=== PATIENT | female | born 1935 | race Caucasian/White ===

== ENCOUNTER 2017-09-12 17:20 | Inpatient (IN) ==
[2017-09-12] MEDS ORDERED: Lactulose Oral Soln 20 GM/30 ML UDC PO PRN (18:41)
[2017-09-12] MEDS ORDERED: [UNRECOGNIZED DRUG - REMARK] IVP SCH (18:45)
[2017-09-12] MEDS ORDERED: *HR* HYDROmorphone 2 MG TABLET PO SCH (18:45)
[2017-09-12] MEDS ORDERED: amLODIPine 5 MG TABLET PO SCH (21:00)
[2017-09-12] MEDS: *HR* OxyCODONE ER (12 HR) 10 MG TABLET PO SCH (21:55)
[2017-09-12] MEDS: Renal Vitamin 1 MG CAPSULE PO SCH (21:55)
[2017-09-12] MEDS: *HR* LORazepam 0.5 MG TABLET PO SCH (21:56)
[2017-09-12] MEDS: Aspirin Enteric Coated 81 MG Tablet PO SCH (21:56)
[2017-09-12] MEDS: Sennosides 8.6 MG TABLET PO SCH (21:56)
[2017-09-12] MEDS: Bumetanide 1 MG TABLET PO SCH (22:01)
[2017-09-12] MEDS: MECLIZINE HCL PO SCH (22:01)
[2017-09-13] MEDS ORDERED: (Pomalidomide [Pomalyst] 2 MG) PO SCH (09:00)
[2017-09-13] MEDS: MECLIZINE HCL PO SCH ×2 (09:00→20:29)
[2017-09-13] MEDS: Bumetanide 1 MG TABLET PO SCH ×2 (10:41→18:28)
[2017-09-13] MEDS: *HR* OxyCODONE ER (12 HR) 10 MG TABLET PO SCH ×2 (10:42→20:28)
[2017-09-13] MEDS: Folic Acid 1 MG TABLET PO SCH (10:42)
[2017-09-13] MEDS: *HR* LORazepam 0.5 MG TABLET PO SCH ×2 (10:45→20:29)
--- NOTE | 2017-09-13 15:18 | Internal Med History&Physical ---
Date of Encounter: 09/13/17 Time of Encounter: 14:45 Assessment and Plan (1) ESRD (end stage renal disease) on dialysis Current visit: No Status: Chronic Continue MWF hemodialysis. (2) Atrial fibrillation Current visit: No Status: Chronic Paroxysmal. She is not on anticoagulation but does take aspirin 81 mg daily. Qualifiers: Atrial fibrillation type: chronic Qualified Code(s): I48.2 - Chronic atrial fibrillation (3) Multiple myeloma Current visit: No Status: Chronic As per oncologist. Qualifiers: Multiple myeloma remission status: not in remission Qualified Code(s): C90.00 - Multiple myeloma not having achieved remission (4) Hypothyroidism Current visit: No Status: Chronic TSH was normal at 1.251 on 06/02/2017. Continue present dose Synthroid. Qualifiers: Hypothyroidism type: unspecified Qualified Code(s): E03.9 - Hypothyroidism , unspecified (5) Pancytopenia Current visit: No Status: Chronic Probably secondary to multiple myeloma. Will monitor blood count as necessary. (6) Hypertension Current visit: No Status: Chronic Blood pressure occasionally borderline low. We will reduce dose of amlodipine Qualifiers: Hypertension type: essential hypertension Qualified Code(s): I10 - Essential (primary) hypertension Internal Medicine - H&P: HPI Chief complaint: Pneumonia, weakness Admitted From: Hospital to Hospital Transfer Plans for Post Hospital Care: Home History of present illness: Ms. Melara is a 81 year old female who was hospitalized at [facility] September 03- after admission for pneumonia with hypoxemia. She was treated with IV antibiotics and had satisfactory improvement. Bilateral pleural effusions were documented and she had right thoracentesis with benign transudate found. She was stabilized and admitted to [facility] swing bed for ongoing rehabilitation therapy. Her respiratory history significant for being a lifelong nonsmoker. She denies previous pneumonia or pleural effusions. She reports she does wear home oxygen but does not know the qualifying diagnosis. She does not recall having PFTs. Past Med Surg Social Fam HX - Past Medical History Medical history: cancer, diabetes, hyperlipidemia, hypertension, renal disease, thyroid disease, other Psychiatric history: anxiety, depression - Past Surgical History Surgical History: other - Social History Smoking Status: Never smoker Smokeless Tobacco Status: No Alcohol use: none Drug use: none - Family History Mother Family Member Ethnicity: Non- Living Status: Father Family Member Ethnicity: Non- Living Status: Hx Family Cardiac Disorders: Yes (prostate) Internal Medicine - H&P: Meds Levothyroxine [Synthroid] 75 mcg PO DAILY 06/12/15 [History] Cyanocobalamin (Vitamin B-12) [Vitamin B12] 2,000 mcg PO DAILY #60 tablet [Rx] Lactulose 15 ml PO QID PRN #300 mls 11/07/16 [Rx] Bumetanide [Bumex] 1 mg PO BID 11/12/16 [History] Folic Acid 1 mg PO DAILY #90 tablet 12/31/16 [Rx] Amlodipine Besylate 10 mg PO HS 04/19/17 [History] Citalopram [CeleXA] 1 tab PO HS #30 tablet 05/20/17 [Rx] Metoprolol [Lopressor] 12.5 mg PO BID 05/20/17 [History] Renal Vitamin [Renal Caps Softgel] 1 mg PO HS 05/20/17 [History] Aspirin Enteric Coated [Aspirin EC] 81 mg PO HS 08/07/17 [History] Meclizine HCl [Verticalm] 1 tab PO BID 08/07/17 [History] Sennosides [Senna] 8.6 mg PO HS 08/07/17 [History] Midodrine [ProAmatine] 2.5 mg PO 3XW 09/01/17 [History] Guaifenesin [Mucinex] 600 mg PO BID #20 tab.er.12h 09/02/17 [Rx] Parenteral Amino Acid 20% No.1 [Prosol] 90 gm IJ MOWEFR 09/04/17 [History] Pomalidomide [Pomalyst] 2 mg PO DAILY 09/04/17 [History] HYDROmorphone [Dilaudid] 2 mg PO AD 10 Days #10 tablet 09/12/17 [Rx] LORazepam [Ativan] 0.5 mg PO BID 4 Days #8 tablet 09/12/17 [Rx] OxyCODONE ER (12 HR) [OxyCONTIN] 10 mg PO BID 4 Days #8 tab.er.12h 09/12/17 [Rx] 3 Allergy/AdvReac Type Severity Reaction Status Date / Time Sulfa (Sulfonamide Allergy Unknown Hives Verified 09/03/17 11:21 Antibiotics) All Systems PM: A 10-system review of systems was performed and is negative for pertinent findings except as documented above in the HPI. Review of systems: Gen.: She states her weight has been stable the past few months Cardiovascular: She has history of hypertension. She reports occasional chest pain on exertion. She denies [place] heart failure DVT or pulmonary embolus. A limited echocardiogram 04/20/2017 showed LVEF of 60-65%. There was LAE at 5.00 cm. The interventricular septum thickness measurement was reported elevated at 1.50 cm. Posterior wall thickness measurement was normal at 0.80 cm. Left ventricular end diastolic diameter was 3.20 cm. An echocardiogram 09/12/2016 showed estimated RVSP of 39 mmHg. There was mild mitral regurgitation present. The interventricular septum thickness measurement was normal at 1.00 cm. She has history of atrial fibrillation that is apparently paroxysmal. Respiratory: As per history of present illness GI: She denies disorders of her liver gallbladder or exocrine pancreas : She has chronic kidney disease stage V and has been on MWF hemodialysis since September 2016. She denies other kidney or bladder disorders. Neurologic: She denies large distribution strokes or seizures. Endocrine: She has hypothyroidism. She has history of DM 2 but states she adjusted her diet and no longer takes medication. Hemoglobin A1c was satisfactory at 5.7% on 09/11/2016. Hematology/oncology: She was diagnosed with multiple myeloma approximate October 2016. A bone survey 02/18/2017 showed numerous lytic lesions throughout the axial and appendicular skeleton consistent with multiple myeloma. She has pancytopenia presumably secondary to myeloma. She has had skin cancers but denies internal malignancies. Psychiatric: She has anxiety and depression but denies other mental health issues [place] skeletal: She denies arthritis gout or other bone joint or muscle disorders. She has had bony spread of the multiple myeloma as per above. She has had T12 and L3 pathologic fractures. - Constitutional Vitals: Temp Pulse Resp BP Pulse Ox 98.5 F 65 18 111/61 92 09/13/17 07:22 09/13/17 10:28 09/13/17 07:22 09/13/17 07:22 09/13/17 10:28 Exam: Gen.: She is a well-developed pale female resting comfortably in bed who appears in no acute distress. She denies pain or dyspnea at rest. HEENT: Head is atraumatic and normocephalic. Eyes: EOMI. There is no scleral icterus. Mouth: Mucosa is moist. Neck: Supple and nontender. There is no thyromegaly or adenopathy noted. Heart: Regular without murmurs gallops or ectopics Lungs: She has diminished breath sounds and dullness to percussion in the lung bases bilaterally. No wheezes or crackles are heard. Abdomen: Soft and nontender. No masses or guarding are noted. Extremities: There is no cyanosis or clubbing noted. There is trace edema present on the dorsum of the feet and lower anterior shins. She has mild DJD changes of her hands. Neurologic: Mental status: She is talkative and a good historian. Cranial nerves: Smile is symmetric. Forehead wrinkles bilaterally. Tongue protrudes midline. EOMI. Motor: There is no pronator drift. Cerebellar: Finger to nose is intact bilaterally. Skin: Warm and dry
[2017-09-13] MEDS ORDERED: *HR* HYDROmorphone 2 MG TABLET PO PRN (18:34)
[2017-09-13] MEDS: Sennosides 8.6 MG TABLET PO SCH (20:28)
[2017-09-13] MEDS: Renal Vitamin 1 MG CAPSULE PO SCH (20:28)
[2017-09-13] MEDS: amLODIPine 5 MG TABLET PO SCH (20:29)
[2017-09-13] MEDS: Aspirin Enteric Coated 81 MG Tablet PO SCH (20:29)
[2017-09-14] MEDS: Bumetanide 1 MG TABLET PO SCH ×2 (08:22→17:16)
[2017-09-14] MEDS: *HR* OxyCODONE ER (12 HR) 10 MG TABLET PO SCH ×2 (08:36→20:17)
[2017-09-14] MEDS: Folic Acid 1 MG TABLET PO SCH (08:38)
[2017-09-14] MEDS: *HR* LORazepam 0.5 MG TABLET PO SCH ×2 (08:38→20:17)
[2017-09-14] MEDS: MECLIZINE HCL PO SCH ×2 (09:00→20:17)
--- NOTE | 2017-09-14 10:43 | Internal Med Progress Note ---
Date of Encounter: 09/14/17 Time of Encounter: 10:35 - Assessment and plan (1) ESRD (end stage renal disease) on dialysis Current Visit: No Status: Chronic Assessment and plan: September 14. Continue MWF hemodialysis. (2) Atrial fibrillation Current Visit: No Status: Chronic Assessment and plan: September 14. Paroxysmal. Continue aspirin 81 mg daily. Qualifiers: Atrial fibrillation type: chronic Qualified Code(s): I48.2 - Chronic atrial fibrillation (3) Multiple myeloma Current Visit: No Status: Chronic Assessment and plan: September 14. As per oncologist. Qualifiers: Multiple myeloma remission status: not in remission Qualified Code(s): C90.00 - Multiple myeloma not having achieved remission (4) Hypothyroidism Current Visit: No Status: Chronic Assessment and plan: September 14. TSH was normal at 1.251 on 06/02/2017. Continue Synthroid. Qualifiers: Hypothyroidism type: unspecified Qualified Code(s): E03.9 - Hypothyroidism , unspecified (5) Pancytopenia Current Visit: No Status: Chronic Assessment and plan: September 14. Probably secondary to multiple myeloma. Will monitor periodically. (6) Hypertension Current Visit: No Status: Chronic Assessment and plan: September 14. Blood pressure stable. Continue Lopressor and lower dose amlodipine. Qualifiers: Hypertension type: essential hypertension Qualified Code(s): I10 - Essential (primary) hypertension - Subjective Interval history: September 14. She has no new complaints. - Constitutional Vitals: Temp Pulse Resp BP Pulse Ox 98.0 F 57 18 128/58 93 09/14/17 06:57 09/14/17 06:57 09/14/17 06:57 09/14/17 06:57 09/14/17 06:57 Exam: She is resting comfortably in bed and appears in no acute distress. Her affect is bright and cheerful. I reviewed her medications and lab results. Consult Discharge Plan - Plan Referrals: Viet Ny DO [Primary Care Provider] - 1 week
[2017-09-14] MEDS: Renal Vitamin 1 MG CAPSULE PO SCH (20:16)
[2017-09-14] MEDS: amLODIPine 5 MG TABLET PO SCH (20:16)
[2017-09-14] MEDS: Aspirin Enteric Coated 81 MG Tablet PO SCH (20:16)
[2017-09-14] MEDS: Sennosides 8.6 MG TABLET PO SCH (20:17)
[2017-09-15] MEDS: *HR* LORazepam 0.5 MG TABLET PO SCH (08:32)
[2017-09-15] MEDS: MECLIZINE HCL PO SCH ×2 (08:32→22:00)
[2017-09-15] MEDS: *HR* OxyCODONE ER (12 HR) 10 MG TABLET PO SCH (08:32)
[2017-09-15] MEDS ORDERED: *HR* LORazepam 0.5 MG TABLET PO PRN (09:39)
[2017-09-15] MEDS: Folic Acid 1 MG TABLET PO SCH (15:57)
[2017-09-15] MEDS: Bumetanide 1 MG TABLET PO SCH (16:03)
[2017-09-15] MEDS ORDERED: *HR* HYDROmorphone 2 MG TABLET PO PRN (21:54)
[2017-09-15] MEDS: Renal Vitamin 1 MG CAPSULE PO SCH (21:59)
[2017-09-15] MEDS: Sennosides 8.6 MG TABLET PO SCH (21:59)
[2017-09-15] MEDS: Aspirin Enteric Coated 81 MG Tablet PO SCH (21:59)
[2017-09-15] MEDS: *HR* OxyCODONE/APAP 5/325 TABLET PO PRN (23:18)
[2017-09-16] MEDS: Folic Acid 1 MG TABLET PO SCH (07:55)
[2017-09-16] MEDS: MECLIZINE HCL PO SCH ×2 (12:42→21:21)
--- NOTE | 2017-09-16 15:05 | Internal Med Progress Note ---
Date of Encounter: 09/16/17 Time of Encounter: 14:55 - Assessment and plan (1) ESRD (end stage renal disease) on dialysis Current Visit: No Status: Chronic Assessment and plan: September 14. Continue MWF hemodialysis. (2) Atrial fibrillation Current Visit: No Status: Chronic Assessment and plan: September 14. Paroxysmal. Continue aspirin 81 mg daily. Qualifiers: Atrial fibrillation type: chronic Qualified Code(s): I48.2 - Chronic atrial fibrillation (3) Multiple myeloma Current Visit: No Status: Chronic Assessment and plan: September 14. As per oncologist. Qualifiers: Multiple myeloma remission status: not in remission Qualified Code(s): C90.00 - Multiple myeloma not having achieved remission (4) Hypothyroidism Current Visit: No Status: Chronic Assessment and plan: September 14. TSH was normal at 1.251 on 06/02/2017. Continue Synthroid. Qualifiers: Hypothyroidism type: unspecified Qualified Code(s): E03.9 - Hypothyroidism , unspecified (5) Pancytopenia Current Visit: No Status: Chronic Assessment and plan: September 14. Probably secondary to multiple myeloma. Will monitor periodically. (6) Hypertension Current Visit: No Status: Chronic Assessment and plan: September 14. Blood pressure stable. Continue Lopressor and lower dose amlodipine. September 16. Amlodipine was discontinued to lessen edema and avoid hypotension. Will give Toprol-XL 12.5 mg daily. Qualifiers: Hypertension type: essential hypertension Qualified Code(s): I10 - Essential (primary) hypertension - Subjective Interval history: September 14. She has no new complaints. September 16. She has no new complaints and feels well. - Constitutional Vitals: Temp Pulse Resp BP Pulse Ox 98.1 F 64 19 154/72 92 09/16/17 06:18 09/16/17 06:18 09/16/17 06:18 09/16/17 06:18 09/16/17 06:18 Exam: She is sitting comfortably in a chair at bedside at rest. Her affect is bright and cheerful. I reviewed her medications and past lab results. Consult Discharge Plan - Plan Referrals: Viet Ny DO [Primary Care Provider] - 1 week
[2017-09-16] MEDS: *HR* OxyCODONE/APAP 5/325 TABLET PO PRN ×2 (17:00→21:41)
[2017-09-16] MEDS: Renal Vitamin 1 MG CAPSULE PO SCH (21:31)
[2017-09-16] MEDS: Aspirin Enteric Coated 81 MG Tablet PO SCH (21:32)
[2017-09-16] MEDS: Bumetanide 1 MG TABLET PO SCH (21:32)
[2017-09-16] MEDS: Sennosides 8.6 MG TABLET PO SCH (21:32)
[2017-09-17] MEDS: Bumetanide 1 MG TABLET PO SCH (07:13)
[2017-09-17] MEDS: MECLIZINE HCL PO SCH ×2 (09:45→20:35)
[2017-09-17] MEDS: Folic Acid 1 MG TABLET PO SCH (09:45)
[2017-09-17] MEDS: Metoprolol XL (24 HR) Succ 25 MG TAB.ER.24H PO SCH (09:51)
[2017-09-17] MEDS: Sennosides 8.6 MG TABLET PO SCH (20:35)
[2017-09-17] MEDS: Renal Vitamin 1 MG CAPSULE PO SCH (20:35)
[2017-09-17] MEDS: Aspirin Enteric Coated 81 MG Tablet PO SCH (20:36)
[2017-09-17] MEDS: *HR* OxyCODONE/APAP 5/325 TABLET PO PRN (20:41)
[2017-09-18] MEDS: Metoprolol XL (24 HR) Succ 25 MG TAB.ER.24H PO SCH (11:01)
[2017-09-18] MEDS: Folic Acid 1 MG TABLET PO SCH (11:01)
[2017-09-18] MEDS: MECLIZINE HCL PO SCH ×2 (11:01→20:16)
[2017-09-18] MEDS: *HR* OxyCODONE/APAP 5/325 TABLET PO PRN (13:20)
[2017-09-18] MEDS: Bumetanide 1 MG TABLET PO SCH (18:01)
[2017-09-18] MEDS: Renal Vitamin 1 MG CAPSULE PO SCH (20:15)
[2017-09-18] MEDS: Sennosides 8.6 MG TABLET PO SCH (20:16)
[2017-09-18] MEDS: Aspirin Enteric Coated 81 MG Tablet PO SCH (20:16)
[2017-09-19] MEDS: Metoprolol XL (24 HR) Succ 25 MG TAB.ER.24H PO SCH (08:20)
[2017-09-19] MEDS: MECLIZINE HCL PO SCH (08:20)
[2017-09-19] MEDS: Folic Acid 1 MG TABLET PO SCH (08:21)
[2017-09-19 10:41] VITALS: BP 110/76
--- NOTE | 2017-09-19 15:43 | Discharge Summary ---
Date of Encounter: 09/19/17 Time of Encounter: 15:30 - Discharge Diagnosis (1) ESRD (end stage renal disease) on dialysis Priority: Primary Status: Chronic (2) Atrial fibrillation Priority: Secondary Status: Chronic Qualifiers: Atrial fibrillation type: paroxysmal Qualified Code(s): I48.0 - Paroxysmal atrial fibrillation (3) Multiple myeloma Priority: Secondary Status: Chronic Qualifiers: Multiple myeloma remission status: not in remission Qualified Code(s): C90.00 - Multiple myeloma not having achieved remission (4) Hypothyroidism Priority: Secondary Status: Chronic Qualifiers: Hypothyroidism type: unspecified Qualified Code(s): E03.9 - Hypothyroidism , unspecified (5) Pancytopenia Priority: Secondary Status: Chronic (6) Hypertension Priority: Secondary Status: Chronic Qualifiers: Hypertension type: essential hypertension Qualified Code(s): I10 - Essential (primary) hypertension Hospital course: Ms. Melara is a 82 year old female who was hospitalized at [facility] September 03- after admission for pneumonia with hypoxemia. She was treated with IV antibiotics and had satisfactory improvement. Bilateral pleural effusions were documented and she had right thoracentesis with benign transudate found. She was stabilized and admitted to [facility] swing bed for ongoing rehabilitation therapy. Initial orders were written by the discharging physicians at [facility]. I saw her on September 13 and performed the swing bed history and physical. She continued MWF hemodialysis. Amlodipine was discontinued because of edema. There was lessening of edema after discontinuation. Her blood pressure remained satisfactory. Metoprolol dose can be adjusted by her PCP and/or molding supervisor as needed. She had physical therapy and occupational therapy evaluation with ongoing intervention. She made satisfactory progress. There were no new problems and on September 19 she was stable for discharge home. She will follow with her PCP Dr. Viet Ny within 1 week. - Time Spent with Patient Total time spent providing and/or coordinating discharge services: - Discharge Medications Home Medications: Levothyroxine [Synthroid] 75 mcg PO DAILY 06/12/15 [History] Lactulose 15 ml PO QID PRN #300 mls 11/07/16 [Rx] Bumetanide [Bumex] 1 mg PO BID 11/12/16 [History] Folic Acid 1 mg PO DAILY #90 tablet 12/31/16 [Rx] Citalopram [CeleXA] 1 tab PO HS #30 tablet 05/20/17 [Rx] Metoprolol [Lopressor] 12.5 mg PO BID 05/20/17 [History] Renal Vitamin [Renal Caps Softgel] 1 mg PO HS 05/20/17 [History] Aspirin Enteric Coated [Aspirin EC] 81 mg PO HS 08/07/17 [History] Meclizine HCl [Verticalm] 1 tab PO BID 08/07/17 [History] Sennosides [Senna] 8.6 mg PO HS 08/07/17 [History] Midodrine [ProAmatine] 2.5 mg PO 3XW 09/01/17 [History] Parenteral Amino Acid 20% No.1 [Prosol] 90 gm IJ MOWEFR 09/04/17 [History] Pomalidomide [Pomalyst] 2 mg PO DAILY 09/04/17 [History] HYDROmorphone [Dilaudid] 2 mg PO AD 10 Days #10 tablet 09/12/17 [Rx] LORazepam [Ativan] 0.5 mg PO BID 4 Days #8 tablet 09/12/17 [Rx] Allergies/Adverse Reactions: 3 Allergy/AdvReac Type Severity Reaction Status Date / Time Sulfa (Sulfonamide Allergy Unknown Hives Verified 09/03/17 11:21 Antibiotics) Date of admission: 09/12/17 17:25 Primary care physician: Viet Ny DO Consults: 09/12/17 18:14 Consult to Occupational Therapy [CONS] Routine Comment: Eval, Develop, and Implement P.O.C. Reason for Consult: weakness Does patient have active BEDREST order?: No Is patient medically & hemodynamically stable?: Yes Patient assessed for mobility or mobilized this visit?: Yes Consult to Physical Therapy [CONS] Routine Comment: Eval, Develop, and Implement P.O.C. Reason for Consult: weakness Does patient have active BEDREST order?: No Is patient medically & hemodynamically stable?: Yes Patient assessed for mobility or mobilized this visit?: Yes Consult to Insurance Producer [CONS] Routine Reason for SW Consult: D/C planning - dialysis @ [facility] 09/13/17 18:44 Consult to Nutrition [CONS] Routine Comment: Consulting Provider: NUTRITION Reason for Dietary Consult: Other Other:: pt has multiple myeloma and is a dialysis pt - Constitutional Vitals: Temp Pulse Resp BP Pulse Ox 98.2 F 97 19 110/76 95 09/19/17 10:30 09/19/17 10:30 09/19/17 10:30 09/19/17 10:30 09/19/17 10:30 - Patient Status Disposition: Home Health Service Overall status at discharge: patient is progressing back to baseline - Discharge Instructions Follow Up With: Viet Ny DO [Primary Care Provider] - 1 week - Diet and Activity Activity: as per physical therapy Diet: advance to your usual diet
--- NOTE | 2017-09-19 15:48 | Physician Discharge Referral ---
Home Health/Hosp Referral Info Transfer to: Home Health Attending Provider: Jaycob Provider in Charge Post Discharge: PCP (Viet Ny D.O.) - Diagnosis (1) ESRD (end stage renal disease) on dialysis Priority: Primary Status: Chronic (2) Atrial fibrillation Priority: Secondary Status: Chronic (3) Multiple myeloma Priority: Secondary Status: Chronic (4) Hypothyroidism Priority: Secondary Status: Chronic (5) Pancytopenia Priority: Secondary Status: Chronic (6) Hypertension Priority: Secondary Status: Chronic - Respiratory Orders Smoking Cessation: Smoking cessation has been advised. For more information, call the [place] Tobacco Quit Line at 7-873-LZJR-NOW. - Diet/Nutrition Diet/Nutrition Orders: Regular - Activity Activity Orders: Ambulate - Services Needed Following services are medically necessary services: Nursing, Home Health Aide, Physical Therapy, Occupational Therapy - Transfer Medications Home Medications: Levothyroxine [Synthroid] 75 mcg PO DAILY 06/12/15 [History] Lactulose 15 ml PO QID PRN #300 mls 11/07/16 [Rx] Bumetanide [Bumex] 1 mg PO BID 11/12/16 [History] Folic Acid 1 mg PO DAILY #90 tablet 12/31/16 [Rx] Citalopram [CeleXA] 1 tab PO HS #30 tablet 05/20/17 [Rx] Metoprolol [Lopressor] 12.5 mg PO BID 05/20/17 [History] Renal Vitamin [Renal Caps Softgel] 1 mg PO HS 05/20/17 [History] Aspirin Enteric Coated [Aspirin EC] 81 mg PO HS 08/07/17 [History] Meclizine HCl [Verticalm] 1 tab PO BID 08/07/17 [History] Sennosides [Senna] 8.6 mg PO HS 08/07/17 [History] Midodrine [ProAmatine] 2.5 mg PO 3XW 09/01/17 [History] Parenteral Amino Acid 20% No.1 [Prosol] 90 gm IJ MOWEFR 09/04/17 [History] Pomalidomide [Pomalyst] 2 mg PO DAILY 09/04/17 [History] HYDROmorphone [Dilaudid] 2 mg PO AD 10 Days #10 tablet 09/12/17 [Rx] LORazepam [Ativan] 0.5 mg PO BID 4 Days #8 tablet 09/12/17 [Rx] Allergies/Adverse Reactions: 3 Allergy/AdvReac Type Severity Reaction Status Date / Time Sulfa (Sulfonamide Allergy Unknown Hives Verified 09/03/17 11:21 Antibiotics) Certification: Further, I certify that my clinical findings support that this patient is homebound (i.e. absences from home require considerable and taxing effort and are for medical reasons or jainism services or infrequently or short duration when for other reasons) because: Homebound Reason: Leaving home requires considerable and taxing effort due to condition (End-stage renal disease, atrial fibrillation, DJD) Attestation: My signature below is to certify that this patient is under my care and that I, or nurse practitioner, or a physician's clothing sales assistant working with me, has a face-to -face encounter with this patient.
[2017-09-20] MEDS ORDERED: Bumetanide 1 MG TABLET PO SCH (08:00)
== END 2017-09-19 16:20 | disposition home health service (06) | DRG 945 ==
LOC: INPPIK 17:25
PROVIDERS: ADMIT Internal Medicine; ATTEND Internal Medicine

== ENCOUNTER 2018-01-17 14:46 | Inpatient (IN) ==
[2018-01-17] MEDS ORDERED: Acetaminophen 325 MG TABLET PO PRN (22:53)
[2018-01-17] MEDS ORDERED: *HR* LORazepam 0.5 MG TABLET PO PRN (23:00)
[2018-01-17] MEDS ORDERED: Ondansetron ODT 4 MG TAB.RAPDIS SL PRN (23:02)
[2018-01-17] MEDS ORDERED: Sennosides 8.6 MG TABLET PO PRN (23:05)
[2018-01-18] MEDS: amLODIPine 5 MG TABLET PO SCH (07:34)
[2018-01-18] MEDS: Folic Acid 1 MG TABLET PO SCH (07:34)
[2018-01-18] MEDS: Cyanocobalamin (B-12) 1,000 MCG TABLET PO SCH (07:34)
[2018-01-18] MEDS: levETIRAcetam 250 MG TABLET PO SCH (07:35)
[2018-01-18] MEDS ORDERED: TRIPHROCAPS PO SCH (09:00)
[2018-01-18] MEDS ORDERED: [UNRECOGNIZED DRUG - REMARK] PO SCH (09:00)
[2018-01-18 09:08] LABS: Basophils % 1.7 %; Hematocrit 31.6 % (35.3-44.9); Hemoglobin 10.5 g/dL (11.5-15.4); Immature Granulocytes % 0.4 % (0-4); Lymphocytes # 0.7 K/mcL (0.6-4.6); Lymphocytes % 27.2 %; Mean Corpuscular HGB Conc 33.2 g/dL (31.6-35.5); Mean Corpuscular Hemoglobin 32.1 pg (28.0-33.3); Mean Corpuscular Volume 96.6 fL (83.0-100.0); Mean Platelet Volume 9.4 fL (9.4-12.4); Monocytes # 0.4 K/mcL (0.0-1.3); Monocytes % 15.1 %; Neutrophils # 1.3 K/mcL (1.6-8.9); Red Blood Count 3.27 M/mcL (3.82-4.97); Segmented Neutrophils % 55.6 %
[2018-01-18 09:23] LABS: Platelet Count 79 K/mcL (140-400)
[2018-01-18 09:52] LABS: Potassium 4.2 mEq/L (3.5-5.1)
--- NOTE | 2018-01-18 12:42 | Internal Med History&Physical ---
Date of Encounter: 01/18/18 Time of Encounter: 12:10 Assessment and Plan (1) Subdural bleeding Current visit: No Status: Acute Nonoperative treatment. Remain off NSAIDs and anticoagulants etc. (2) Weakness Current visit: Yes Status: Acute PT and OT evaluations with ongoing intervention will be done. (3) ESRD (end stage renal disease) on dialysis Current visit: No Status: Chronic Continue MWF hemodialysis. (4) Multiple myeloma Current visit: No Status: Chronic As per oncologist. Qualifiers: Multiple myeloma remission status: unspecified Qualified Code(s): C90.00 - Multiple myeloma not having achieved remission (5) Hypothyroidism Current visit: No Status: Chronic TSH was normal at 1.251 on 06/02/2017. Continue present dose Synthroid. Qualifiers: Hypothyroidism type: unspecified Qualified Code(s): E03.9 - Hypothyroidism , unspecified (6) Hypertension Current visit: No Status: Chronic Continue amlodipine and lisinopril. Qualifiers: Hypertension type: essential hypertension Qualified Code(s): I10 - Essential (primary) hypertension Internal Medicine - H&P: HPI Chief complaint: Subdural hematoma, weakness Admitted From: Hospital to Hospital Transfer Plans for Post Hospital Care: Home History of present illness: Ms. Melara is a 82 year old female who was transferred to [facility] swing bed after hospitalization at [facility] January 12-January 17. She presented with left facial droop, slurred speech, and confusion witnessed by her home health care nurse. Head CT showed acute on chronic left subdural hematoma. Neurosurgery recommended nonoperative treatment. She was placed on Keppra for nonspecific EEG abnormality. No evidence of acute CVA was found. She was discharged to swing bed to have PT and OT prior to returning to independent living at home. She states she had a fall November 2017 that resulted in left subdural hematoma. She has had no further falls or head trauma. She has not had large distribution strokes or other neurologic diagnoses. Past Med Surg Social Fam HX - Past Medical History Medical history: atrial fibrillation, cancer, diabetes, dialysis, hyperlipidemia , hypertension, renal disease, thyroid disease, other Additional medical history: Subdural hematoma Psychiatric history: anxiety, depression - Past Surgical History Surgical History: other Additional surgical history: heart cath. Permacath R chest - Social History Smoking Status: Never smoker Smokeless Tobacco Status: No Alcohol use: none Drug use: none - Family History Mother Family Member Ethnicity: Non- Living Status: Father Family Member Ethnicity: Non- Living Status: Hx Family Cardiac Disorders: Yes (prostate) Internal Medicine - H&P: Meds Levothyroxine [Synthroid] 75 mcg PO DAILY 06/12/15 [History] Cyanocobalamin (Vitamin B-12) [Vitamin B-12] 2,000 mcg PO DAILY 09/30/17 [ History] Lisinopril [Zestril] 10 mg PO DAILY 11/18/17 [History] Sennosides [Senna] 8.6 mg PO HS #30 tablet 11/18/17 [Rx] Ondansetron ODT [Zofran ODT] 4 mg SL Q6HR #20 tab.rapdis 12/02/17 [Rx] Amlodipine Besylate 10 mg PO DAILY 12/30/17 [History] Dexamethasone [Decadron] 4 mg PO AD #20 tab 12/30/17 [Rx] Pomalidomide [Pomalyst] 2 mg PO DAILY #21 capsule 12/30/17 [Rx] Folic Acid 1 mg PO DAILY #90 tablet 01/12/18 [Rx] Acetaminophen 650 mg PO Q4H PRN 01/17/18 [History] Carvedilol 3.125 mg PO BID 01/17/18 [History] Citalopram [CeleXA] 20 mg PO HS 01/17/18 [History] Dexamethasone 20 mg PO Q1W 01/17/18 [History] Folic Acid 1 mg PO DAILY 01/17/18 [History] Keppra 250 mg PO QMWF 01/17/18 [History] Keppra 750 mg PO DAILY 01/17/18 [History] Lorazepam 0.5 mg PO Q12H 01/17/18 [History] Potassium Chloride [Klor-Con 10] 2 mg PO DAILY 01/17/18 [History] 3 Allergy/AdvReac Type Severity Reaction Status Date / Time Sulfa (Sulfonamide Allergy Unknown Hives Verified 12/30/17 13:33 Antibiotics) All Systems PM: A 10-system review of systems was performed and is negative for pertinent findings except as documented above in the HPI. Review of systems: Review of systems from her August 2017 [facility] hospitalization were reviewed and revised as below. Gen.: Her weight has increased from 55.934 kg 09/12/2017 to 59.534 kg at present. Cardiovascular: She has history of hypertension. She reports occasional chest pain on exertion. She denies ME heart failure DVT or pulmonary embolus. A limited echocardiogram 04/20/2017 showed LVEF of 60-65%. There was LAE at 5.00 cm. The interventricular septum thickness measurement was reported elevated at 1.50 cm. Posterior wall thickness measurement was normal at 0.80 cm. Left ventricular end diastolic diameter was 3.20 cm. An echocardiogram 09/12/2016 showed estimated RVSP of 39 mmHg. There was mild mitral regurgitation present. The interventricular septum thickness measurement was normal at 1.00 cm. She has history of atrial fibrillation that is apparently paroxysmal. Respiratory: She is a lifelong nonsmoker. She had home oxygen at one time but it has been removed since her August 2017 [facility] hospitalization. She does not recall having PFTs. GI: She denies disorders of her liver gallbladder or exocrine pancreas : She has chronic kidney disease stage V and has been on MWF hemodialysis since September 2016. She denies other kidney or bladder disorders. Neurologic: As per history of present illness Endocrine: She has hypothyroidism. She has history of DM 2 but states she adjusted her diet and no longer takes medication. Hemoglobin A1c was satisfactory at 5.7% on 09/11/2016. Hematology/oncology: She was diagnosed with multiple myeloma approximate October 2016. A bone survey 02/18/2017 showed numerous lytic lesions throughout the axial and appendicular skeleton consistent with multiple myeloma. She has pancytopenia presumably secondary to myeloma. She has had skin cancers but denies internal malignancies. Psychiatric: She has anxiety and depression but denies other mental health issues [place] skeletal: She denies arthritis gout or other bone joint or muscle disorders. She has had bony spread of the multiple myeloma as per above. She has had T12 and L3 pathologic fractures. - Constitutional Vitals: Temp Pulse Resp BP Pulse Ox 97.6 F 67 16 129/61 90 01/18/18 10:38 01/18/18 10:38 01/18/18 10:38 01/18/18 10:38 01/18/18 10:38 Exam: Gen.: She is a well-developed well-nourished female who appears in no acute distress at present time. HEENT: Head is atraumatic and normocephalic. Eyes: EOMI. There is no scleral icterus. Mouth: Mucosa is moist. Neck: Supple and nontender. There is no thyromegaly or adenopathy noted. Heart: Regular without murmurs gallops or ectopics Lungs: No wheezes or crackles are heard. Abdomen: Soft and nontender. No masses or guarding are noted. Extremities: There is no cyanosis edema or clubbing noted. Dorsalis pedis and posterior tibial pulses are trace to 1+ palpable bilaterally. Neurologic: Mental status: She is talkative and a good historian. Cranial nerves: Smile is symmetric. Forehead wrinkles bilaterally. Tongue protrudes midline. EOMI. Motor: There is no pronator drift. Cerebellar: Finger to nose is intact bilaterally. Skin: Warm and dry Internal Med - H&P Results - Labs CBC & Chem 7: 01/18/18 08:50 01/18/18 08:50 Labs: Short CBC 01/18/18 Range/Units 08:50 WBC 2.4 L D (4.3-11.1) K/mcL Hgb 10.5 L D (11.5-15.4) g/dL Hct 31.6 L (35.3-44.9) % Plt Count 79 L (140-400) K/mcL Neutrophils # 1.3 L (1.6-8.9) K/mcL BMP 01/18/18 08:50 Sodium 136 Potassium 4.2 Chloride 98 Carbon Dioxide 29 BUN 42 H Creatinine 5.75 H Glucose 121 H Calcium 8.0 L
[2018-01-19] MEDS: levETIRAcetam 250 MG TABLET PO SCH ×2 (09:48→09:49)
[2018-01-19] MEDS: Folic Acid 1 MG TABLET PO SCH (09:49)
[2018-01-19] MEDS: Cyanocobalamin (B-12) 1,000 MCG TABLET PO SCH (09:49)
[2018-01-19] MEDS: POMALYST 2 MG PO SCH (16:16)
[2018-01-19] MEDS: amLODIPine 5 MG TABLET PO SCH (16:16)
[2018-01-19] MEDS: TRIPHROCAPS PO SCH (16:17)
[2018-01-20] MEDS: Cyanocobalamin (B-12) 1,000 MCG TABLET PO SCH (08:38)
[2018-01-20] MEDS: Folic Acid 1 MG TABLET PO SCH (08:38)
[2018-01-20] MEDS: amLODIPine 5 MG TABLET PO SCH (08:39)
[2018-01-20] MEDS: levETIRAcetam 250 MG TABLET PO SCH (08:39)
[2018-01-20] MEDS: TRIPHROCAPS PO SCH (09:00)
[2018-01-20] MEDS: POMALYST 2 MG PO SCH (09:00)
--- NOTE | 2018-01-20 15:58 | Internal Med Progress Note ---
Date of Encounter: 01/20/18 Time of Encounter: 15:55 - Assessment and plan (1) Subdural bleeding Current Visit: No Status: Inactive Assessment and plan: January 20. Nonoperative treatment. (2) Weakness Current Visit: Yes Status: Acute Assessment and plan: January 20. Continue therapy intervention. (3) ESRD (end stage renal disease) on dialysis Current Visit: No Status: Chronic Assessment and plan: January 20. Continue MWF hemodialysis. (4) Multiple myeloma Current Visit: No Status: Chronic Assessment and plan: January 20. As per oncologist. Qualifiers: Multiple myeloma remission status: unspecified Qualified Code(s): C90.00 - Multiple myeloma not having achieved remission (5) Hypothyroidism Current Visit: No Status: Chronic Assessment and plan: January 20. TSH was normal at 1.251 on 06/02/2017. Continue Synthroid. Qualifiers: Hypothyroidism type: unspecified Qualified Code(s): E03.9 - Hypothyroidism , unspecified (6) Hypertension Current Visit: No Status: Chronic Assessment and plan: January 20. Discontinue lisinopril and change to Cozaar. Continue amlodipine. Qualifiers: Hypertension type: essential hypertension Qualified Code(s): I10 - Essential (primary) hypertension - Subjective Interval history: January 20. She states she since his intermittent swelling in her upper lip. She denies other sensation of edema. She denies new problems and feel she is progressing well in therapy. - Constitutional Vitals: Temp Pulse Resp BP Pulse Ox 98.5 F 68 15 163/85 93 01/20/18 07:16 01/20/18 12:31 01/20/18 07:16 01/20/18 12:31 01/20/18 12:31 Exam: She is sitting in a chair at bedside resting comfortably. No visible swelling/ angioedema of her lip is noted. I reviewed her medications and lab results. Internal Medicine: Result - Labs CBC & Chem 7: 01/18/18 08:50 01/18/18 08:50 Consult Discharge Plan - Plan Referrals: Viet Ny DO [Primary Care Provider] - 1 week
[2018-01-21] MEDS: levETIRAcetam 250 MG TABLET PO SCH ×2 (08:07→08:08)
[2018-01-21] MEDS: Cyanocobalamin (B-12) 1,000 MCG TABLET PO SCH (08:08)
[2018-01-21] MEDS: TRIPHROCAPS PO SCH (08:09)
[2018-01-21] MEDS: POMALYST 2 MG PO SCH (08:09)
[2018-01-21] MEDS: Folic Acid 1 MG TABLET PO SCH (08:12)
[2018-01-21] MEDS: amLODIPine 5 MG TABLET PO SCH (08:13)
[2018-01-22] MEDS: Cyanocobalamin (B-12) 1,000 MCG TABLET PO SCH (09:47)
[2018-01-22] MEDS: levETIRAcetam 250 MG TABLET PO SCH (09:48)
[2018-01-22] MEDS: amLODIPine 5 MG TABLET PO SCH (09:49)
[2018-01-22] MEDS: Folic Acid 1 MG TABLET PO SCH (09:50)
[2018-01-22] MEDS: TRIPHROCAPS PO SCH (09:52)
[2018-01-22] MEDS: POMALYST 2 MG PO SCH (09:52)
--- NOTE | 2018-01-22 12:47 | Internal Med Progress Note ---
Date of Encounter: 01/22/18 Time of Encounter: 12:40 - Assessment and plan (1) Subdural bleeding Current Visit: No Status: Inactive Assessment and plan: January 20. Nonoperative treatment. (2) Weakness Current Visit: Yes Status: Acute Assessment and plan: January 20. Continue therapy intervention. January 22. Continue therapy. Anticipate discharge home 01/24/2018. (3) ESRD (end stage renal disease) on dialysis Current Visit: No Status: Chronic Assessment and plan: January 20. Continue MWF hemodialysis. (4) Multiple myeloma Current Visit: No Status: Chronic Assessment and plan: January 20. As per oncologist. Qualifiers: Multiple myeloma remission status: unspecified Qualified Code(s): C90.00 - Multiple myeloma not having achieved remission (5) Hypothyroidism Current Visit: No Status: Chronic Assessment and plan: January 20. TSH was normal at 1.251 on 06/02/2017. Continue Synthroid. Qualifiers: Hypothyroidism type: unspecified Qualified Code(s): E03.9 - Hypothyroidism , unspecified (6) Hypertension Current Visit: No Status: Chronic Assessment and plan: January 20. Discontinue lisinopril and change to Cozaar. Continue amlodipine. January 22. Continue Cozaar, Coreg, and amlodipine. Qualifiers: Hypertension type: essential hypertension Qualified Code(s): I10 - Essential (primary) hypertension - Subjective Interval history: January 20. She states she since his intermittent swelling in her upper lip. She denies other sensation of edema. She denies new problems and feel she is progressing well in therapy. January 22. She has no new complaints. Her lip swelling has resolved off lisinopril. - Constitutional Vitals: Temp Pulse Resp BP Pulse Ox 99.0 F 61 18 169/67 94 01/22/18 08:05 01/22/18 08:05 01/22/18 08:05 01/22/18 08:05 01/22/18 08:05 Exam: She is resting comfortably in a chair at bedside and appears in no acute distress. Her affect is bright and cheerful. There is no visible edema of her upper lip. I reviewed her medications and lab results. Internal Medicine: Result - Labs CBC & Chem 7: 01/18/18 08:50 01/18/18 08:50 Consult Discharge Plan - Plan Referrals: Viet Ny DO [Primary Care Provider] - 1 week
[2018-01-23] MEDS: levETIRAcetam 250 MG TABLET PO SCH ×2 (09:38)
[2018-01-23] MEDS: Cyanocobalamin (B-12) 1,000 MCG TABLET PO SCH (09:38)
[2018-01-23] MEDS: Folic Acid 1 MG TABLET PO SCH (09:38)
[2018-01-23] MEDS: POMALYST 2 MG PO SCH (09:47)
[2018-01-23] MEDS: TRIPHROCAPS PO SCH (09:48)
--- NOTE | 2018-01-23 10:54 | Discharge Summary ---
Date of Encounter: 01/23/18 Time of Encounter: 10:45 - Discharge Diagnosis (1) Subdural bleeding Priority: Primary Status: Inactive (2) Weakness Priority: Secondary Status: Acute (3) ESRD (end stage renal disease) on dialysis Priority: Secondary Status: Chronic (4) Multiple myeloma Priority: Secondary Status: Chronic Qualifiers: Multiple myeloma remission status: unspecified Qualified Code(s): C90.00 - Multiple myeloma not having achieved remission (5) Hypothyroidism Priority: Secondary Status: Chronic Qualifiers: Hypothyroidism type: unspecified Qualified Code(s): E03.9 - Hypothyroidism , unspecified (6) Hypertension Priority: Secondary Status: Chronic Qualifiers: Hypertension type: essential hypertension Qualified Code(s): I10 - Essential (primary) hypertension Hospital course: Ms. Melara is a 82 year old female who was transferred to [facility] swing bed after hospitalization at [facility] January 12-January 17. She presented with left facial droop, slurred speech, and confusion witnessed by her home health care nurse. Head CT showed acute on chronic left subdural hematoma. Neurosurgery recommended nonoperative treatment. She was placed on Keppra for nonspecific EEG abnormality. No evidence of acute CVA was found. She was discharged to swing bed to have PT and OT prior to returning to independent living at home. Initial orders were written by the discharging physicians at [facility]. I saw her on January 18 and performed the swing bed history and physical. She had physical therapy and occupational therapy evaluations with ongoing intervention. She made satisfactory progress. Arrangements were complete for her to be discharged home on January 24. She will follow with her PCP within 1 week and with neurologist/neurosurgeon's [facility] as directed. - Time Spent with Patient Total time spent providing and/or coordinating discharge services: - Discharge Medications Home Medications: Levothyroxine [Synthroid] 75 mcg PO DAILY 06/12/15 [History] Cyanocobalamin (Vitamin B-12) [Vitamin B-12] 2,000 mcg PO DAILY 09/30/17 [ History] Lisinopril [Zestril] 10 mg PO DAILY 11/18/17 [History] Sennosides [Senna] 8.6 mg PO HS #30 tablet 11/18/17 [Rx] Ondansetron ODT [Zofran ODT] 4 mg SL Q6HR #20 tab.rapdis 12/02/17 [Rx] Amlodipine Besylate 10 mg PO DAILY 12/30/17 [History] Dexamethasone [Decadron] 4 mg PO AD #20 tab 12/30/17 [Rx] Pomalidomide [Pomalyst] 2 mg PO DAILY #21 capsule 12/30/17 [Rx] Folic Acid 1 mg PO DAILY #90 tablet 01/12/18 [Rx] Acetaminophen 650 mg PO Q4H PRN 01/17/18 [History] Carvedilol 3.125 mg PO BID 01/17/18 [History] Citalopram [CeleXA] 20 mg PO HS 01/17/18 [History] Dexamethasone 20 mg PO Q1W 01/17/18 [History] Folic Acid 1 mg PO DAILY 01/17/18 [History] Keppra 250 mg PO QMWF 01/17/18 [History] Keppra 750 mg PO DAILY 01/17/18 [History] Lorazepam 0.5 mg PO Q12H 01/17/18 [History] Potassium Chloride [Klor-Con 10] 2 mg PO DAILY 01/17/18 [History] Allergies/Adverse Reactions: 3 Allergy/AdvReac Type Severity Reaction Status Date / Time Sulfa (Sulfonamide Allergy Unknown Hives Verified 12/30/17 13:33 Antibiotics) Date of admission: 01/17/18 22:10 Primary care physician: Viet Ny DO Consults: 01/17/18 22:38 Consult to Occupational Therapy [CONS] Routine Comment: Evaluate, develop, and implement plan of care. Reason for Consult: Evaluate, develop, and implement plan of care. Does patient have active BEDREST order?: No Is patient medically & hemodynamically stable?: Yes Patient assessed for mobility or mobilized this visit?: No Consult to Physical Therapy [CONS] Routine Comment: Evaluate, develop, and implement plan of care. Reason for Consult: Evaluate, develop, and implement plan of care. Does patient have active BEDREST order?: No Is patient medically & hemodynamically stable?: Yes Patient assessed for mobility or mobilized this visit?: No Consult to Cafe Server [CONS] Routine Reason for SW Consult: New swing bed admission. - Constitutional Vitals: Temp Pulse Resp BP Pulse Ox 98.3 F 60 14 190/76 97 01/23/18 09:02 01/23/18 09:02 01/23/18 09:02 01/23/18 09:02 01/23/18 09:02 - Patient Status Disposition: Home Health Service - Discharge Instructions Follow Up With: Viet Ny DO [Primary Care Provider] - 1 week - Diet and Activity Activity: as per physical therapy Diet: advance to your usual diet
--- NOTE | 2018-01-23 10:59 | Physician Discharge Referral ---
Home Health/Hosp Referral Info Transfer to: Home Health Attending Provider: Jaycob Provider in Charge Post Discharge: PCP Devorah) - Diagnosis (1) Subdural bleeding Priority: Primary Status: Inactive (2) Weakness Priority: Secondary Status: Acute (3) ESRD (end stage renal disease) on dialysis Priority: Secondary Status: Chronic (4) Multiple myeloma Priority: Secondary Status: Chronic (5) Hypothyroidism Priority: Secondary Status: Chronic (6) Hypertension Priority: Secondary Status: Chronic - Respiratory Orders Smoking Cessation: Smoking cessation has been advised. For more information, call the [place] Tobacco Quit Line at 4-476-AVMY-NOW. - Diet/Nutrition Diet/Nutrition Orders: Cardiac - Activity Activity Orders: Ambulate - Services Needed Following services are medically necessary services: Nursing, Home Health Aide, Physical Therapy, Occupational Therapy - Transfer Medications Home Medications: Levothyroxine [Synthroid] 75 mcg PO DAILY 06/12/15 [History] Cyanocobalamin (Vitamin B-12) [Vitamin B-12] 2,000 mcg PO DAILY 09/30/17 [ History] Lisinopril [Zestril] 10 mg PO DAILY 11/18/17 [History] Sennosides [Senna] 8.6 mg PO HS #30 tablet 11/18/17 [Rx] Ondansetron ODT [Zofran ODT] 4 mg SL Q6HR #20 tab.rapdis 12/02/17 [Rx] Amlodipine Besylate 10 mg PO DAILY 12/30/17 [History] Dexamethasone [Decadron] 4 mg PO AD #20 tab 12/30/17 [Rx] Pomalidomide [Pomalyst] 2 mg PO DAILY #21 capsule 12/30/17 [Rx] Folic Acid 1 mg PO DAILY #90 tablet 01/12/18 [Rx] Acetaminophen 650 mg PO Q4H PRN 01/17/18 [History] Carvedilol 3.125 mg PO BID 01/17/18 [History] Citalopram [CeleXA] 20 mg PO HS 01/17/18 [History] Dexamethasone 20 mg PO Q1W 01/17/18 [History] Folic Acid 1 mg PO DAILY 01/17/18 [History] Keppra 250 mg PO QMWF 01/17/18 [History] Keppra 750 mg PO DAILY 01/17/18 [History] Lorazepam 0.5 mg PO Q12H 01/17/18 [History] Potassium Chloride [Klor-Con 10] 2 mg PO DAILY 01/17/18 [History] Allergies/Adverse Reactions: 3 Allergy/AdvReac Type Severity Reaction Status Date / Time Sulfa (Sulfonamide Allergy Unknown Hives Verified 12/30/17 13:33 Antibiotics) Certification: Further, I certify that my clinical findings support that this patient is homebound (i.e. absences from home require considerable and taxing effort and are for medical reasons or bahai services or infrequently or short duration when for other reasons) because: Homebound Reason: Leaving home requires considerable and taxing effort due to condition (Subdural hematoma, CKD5) Attestation: My signature below is to certify that this patient is under my care and that I, or nurse practitioner, or a physician's home based assistant working with me, has a face-to -face encounter with this patient.
[2018-01-23] MEDS: amLODIPine 5 MG TABLET PO SCH (11:05)
[2018-01-24 07:22] VITALS: BP 180/63
[2018-01-24] MEDS: levETIRAcetam 250 MG TABLET PO SCH (09:17)
[2018-01-24] MEDS: Folic Acid 1 MG TABLET PO SCH (09:17)
[2018-01-24] MEDS: Cyanocobalamin (B-12) 1,000 MCG TABLET PO SCH (09:20)
[2018-01-24] MEDS: amLODIPine 5 MG TABLET PO SCH (09:20)
[2018-01-24] MEDS: POMALYST 2 MG PO SCH (09:21)
[2018-01-24] MEDS: TRIPHROCAPS PO SCH (09:22)
== END 2018-01-24 10:40 | disposition home health service (06) | DRG 945 ==
LOC: INPPIK 22:10
PROVIDERS: ADMIT Internal Medicine; ATTEND Internal Medicine

== ENCOUNTER 2018-04-03 15:32 | Observation (INO) ==
[2018-04-03 16:59] LABS: Basophils % 0.5 %; Eosinophils % 0.5 %; Hematocrit 24.3 % (35.3-44.9); Hemoglobin 7.5 g/dL (11.5-15.4); Immature Granulocytes % 0.7 % (0-4); Lymphocytes # 0.7 K/mcL (0.6-4.6); Lymphocytes % 16.1 %; Mean Corpuscular HGB Conc 30.9 g/dL (31.6-35.5); Mean Corpuscular Hemoglobin 30.1 pg (28.0-33.3); Mean Corpuscular Volume 97.6 fL (83.0-100.0); Mean Platelet Volume 8.7 fL (9.4-12.4); Monocytes # 0.6 K/mcL (0.0-1.3); Monocytes % 14.7 %; Neutrophils # 2.9 K/mcL (1.6-8.9); Platelet Count 172 K/mcL (140-400); Red Blood Count 2.49 M/mcL (3.82-4.97); Red Cell Distribution Width 14.2 % (11.5-14.5); Segmented Neutrophils % 67.5 %
--- NOTE | 2018-04-03 17:09 | Emergency Department Note ---
Disposition Clinical Impression: Symptomatic anemia, Intermittent atrial fibrillation, Febrile illness Disposition: Admitted As Inpatient Condition: Fair Referrals: Viet Ny DO [Primary Care Provider] - Forms: ED Satisfaction Letter Time of Disposition: 19:54 Arrhythmia/Palpitations HPI - General Chief Complaint: ED Arrhythmia/Palpitations Stated Complaint: palpitations Time Seen by Provider: 04/03/18 16:30 Source: patient, family, EMS Mode of arrival: EMS Limitations: no limitations Nursing Notes Reviewed: Yes Vital Signs Reviewed: Yes - History of Present Illness Pt Subjective Complaint: rapid heart beat Onset (ago): Just QA ANALYST Duration: now resolved Severity: moderate, similar to previous episodes Context: other (Occurred during dialysis. Dialysis was completed) Arrhythmia History: atrial fibrillation (Intermittent) Associated symptoms: Reports: denies other symptoms. Denies: chest pain, shortness of breath, near-syncope - Related Data Home Medications Medication Instructions Recorded Confirmed Levothyroxine [Synthroid] 75 mcg PO DAILY 06/12/15 03/24/18 Amlodipine Besylate 10 mg PO DAILY 12/30/17 03/24/18 Citalopram [CeleXA] 20 mg PO HS 01/17/18 03/24/18 Acetaminophen [Non-Aspirin] 650 mg PO Q4H PRN 03/06/18 03/24/18 Carvedilol 1.562 mg PO BID 03/06/18 03/24/18 Ergocalciferol (VITAMIN D2) 50,000 unit PO QWEEK 03/06/18 03/24/18 [Vitamin D2] LevETIRAcetam [Keppra] 750 mg PO DAILY 03/06/18 03/24/18 Renal Vitamin [Renal Caps Softgel] 1 mg PO DAILY 03/06/18 03/24/18 levETIRAcetam [Keppra] 250 mg PO QMWF 03/06/18 03/24/18 Cyanocobalamin (Vitamin B-12) 2,000 mcg PO DAILY 03/07/18 03/24/18 [Vitamin B-12] Lisinopril [Zestril] 20 mg PO DAILY 03/07/18 03/24/18 Doxycycline Hyclate [Vibramycin] 100 mg PO BID 03/24/18 03/24/18 Ondansetron ODT [Zofran ODT] 4 mg SL Q6HR PRN 03/24/18 03/24/18 Previous Rx's Medication Instructions Recorded Folic Acid 1 mg PO DAILY #90 tablet 01/12/18 HYDROcodone/Acet 5/325 mg [[place] 1 tab PO BID PRN 30 Days #60 tablet 03/24/18 5-325 mg] Allergies Allergy/AdvReac Type Severity Reaction Status Date / Time Sulfa (Sulfonamide Allergy Unknown Hives Verified 03/24/18 10:11 Antibiotics) All systems ED: reviewed and negative except as stated. Constitutional: Denies: fever, chills ENT ED: Denies: ear pain, throat pain, congestion Cardiovascular: Reports: palpitations. Denies: chest pain Respiratory: Denies: cough, dyspnea Gastrointestinal: Denies: abdominal pain, vomiting, diarrhea Musculoskeletal: Denies: back pain Integumentary: Denies: rash Neurological: Denies: headache Past Medical History - Past Medical History Attestation: Yes The following information was validated with the patient. Source: patient, old records reviewed, obtained from family, nursing notes reviewed Medical history: Reports: atrial fibrillation, cancer, diabetes, dialysis, hyperlipidemia, hypertension, renal disease, thyroid disease Surgical history: Reports: other Psychiatric history: Reports: anxiety, depression IPHONE DEVELOPER history: Reports: no IPHONE DEVELOPER history - Social History Smoking Status: Never smoker Smokeless Tobacco Status: No Alcohol use: Reports: none Drug use: Reports: none Physical Exam - General Limitations: no limitations General appearance: alert, in no apparent distress - Head Head exam: atraumatic, normocephalic, normal inspection - Eye Eye exam: Present: normal appearance, PERRL, EOMI. Absent: scleral icterus, conjunctival injection - ENT ENT exam: normal exam, normal oropharynx, mucous membranes moist, normal external ear exam - Neck Neck exam: Present: normal inspection, full ROM, trachea midline. Absent: meningismus - Chest Chest inspection: Present: normal inspection, symmetric chest wall rise. Absent: tenderness - Respiratory Respiratory exam: Present: other (Left lung sounds pretty clear although decreased sounds at the base. Right lung is clear until about three fourth[address] way down the long at which point this sounds are dull). Absent: respiratory distress, wheezes - Cardiovascular Cardiovascular exam: Present: regular rate, normal rhythm, normal heart sounds - Abdominal Exam Abdominal exam: Present: soft, Non-Tender, normal bowel sounds - Extremities Exam Extremities exam: Present: normal inspection. Absent: pedal edema - Back Exam Back exam: Present: normal inspection. Absent: tenderness - Neurological Exam Neurological exam: Present: alert, oriented X3 - Psychiatric Psychiatric exam: Present: normal affect, normal mood - Skin Skin exam: Present: warm, dry. Absent: rash Course Course Narrative: Sounds like the patient had episode of atrial fibrillation with rapid ventricular response while at dialysis. This is a recurrent problem for the patient. She is on Coreg for it. She is on a low dose because when the gave her the next eyes dose she kept getting very bradycardic. She is in sinus rhythm and her vital signs are fine and she is comfortable and she is denying any symptoms at this point and other than palpitations, she did not have any symptoms at the dialysis place. I will check some basic labs and repeat a chest x-ray. If those are all normal I will discharge patient home with expectant management and follow-up with PCP. - Reevaluation(s) Reevaluation #1: Patient's labs look good except for hemoglobin of 7.5. I then started talking with family and they say that the patient sees her oncologist for her multiple myeloma and they were considering blood transfusion when they see the patient again in 2 weeks. Sounds like the patient has symptomatic anemia and probably is a blood transfusion sooner. I went and spoke with the patient's traffic maintenance supervisor, Dr. Turcios and he felt that he would not be able to arrange that on an outpatient basis or during dialysis. Thus we will admit the patient here for the blood transfusion. I spoke with the hospitalist, Dr. Devries, and he accepted the patient for admission. Time: 19:52 Reevaluation #2: As they were doing preadmission vitals, they found a temperature of 101.7 on the patient. I had them repeat it with a rectal because it was a surprise. Now were him from the family the patient had a temperature every evening for the past week. This is new information to us. Patient has no focus of infection by history or by exam. I went ahead and called Dr. Devries back. He recommends holding off on the transfusion until we get the temperature down. He recommended drawing blood cultures here in the ER. Patient will still be admitted here. Time: 19:53 - Consultations Consultation #1: Dr. Turcios, traffic maintenance supervisor Consultation #2: Dr. Devries, hospitalist Vital Signs Temperature 99 F 04/03/18 15:38 Pulse Rate 119 04/03/18 15:38 Respiratory Rate 22 04/03/18 15:38 Blood Pressure 81/62 04/03/18 15:38 O2 Sat by Pulse Oximetry 92 04/03/18 15:38 Temperature 101.7 F H 04/03/18 19:36 Pulse Rate 93 04/03/18 19:36 Respiratory Rate 20 04/03/18 19:36 Blood Pressure 159/60 04/03/18 19:36 O2 Sat by Pulse Oximetry 92 04/03/18 19:36 Oxygen Delivery Oxygen Delivery Nasal Cannula Arrhythmia/Palpitations - Lab Data Result diagrams: 04/03/18 16:53 04/03/18 16:53 Lab Results 04/03/18 04/03/18 04/03/18 Range/Units 16:52 16:53 16:53 WBC 4.3 (4.3-11.1) K/mcL RBC 2.49 L (3.82-4.97) M/mcL Hgb 7.5 L (11.5-15.4) g/dL Hct 24.3 L (35.3-44.9) % MCV 97.6 (83.0-100.0) fL MCH 30.1 (28.0-33.3) pg MCHC 30.9 L (31.6-35.5) g/dL RDW 14.2 (11.5-14.5) % Plt Count 172 (140-400) K/mcL MPV 8.7 L (9.4-12.4) fL Immature Gran % 0.7 (0-4) % Seg Neutrophils % 67.5 % Lymphocytes % 16.1 % Monocytes % 14.7 % Eosinophils % 0.5 % Basophils % 0.5 % Neutrophils # 2.9 (1.6-8.9) K/mcL Lymphocytes # 0.7 (0.6-4.6) K/mcL Monocytes # 0.6 (0.0-1.3) K/mcL Eosinophils # 0.0 (0.0-0.6) K/mcL Basophils # 0.0 (0.0-0.2) K/mcL Sodium 138 (136-145) mEq/L Potassium 3.1 L (3.5-5.1) mEq/L Chloride 97 L (98-107) mEq/L Carbon Dioxide 33 H (23-29) mEq/L BUN 25 H (8-23) mg/dL Creatinine 2.61 H (0.60-1.20) mg/dL Est GFR ( Amer) 21 L (> 60) Est GFR (Non-Af Amer) 18 L (> 60) BUN/Creatinine Ratio 10 (6-26) Glucose 94 (70-105) mg/dL Calculated Osmolality 290 (280-300) Calcium 8.5 L (8.6-10.3) mg/dL Troponin I < 0.03 (< 0.04) ng/mL Blood Type A POSITIVE Antibody Screen NEGATIVE Crossmatch See Detail
[2018-04-03 17:19] LABS: BUN/Creatinine Ratio 10 (6-26); Blood Urea Nitrogen 25 mg/dL (8-23); Calcium 8.5 mg/dL (8.6-10.3); Carbon Dioxide 33 mEq/L (23-29); Chloride 97 mEq/L (98-107); Glucose 94 mg/dL (70-105); Osmolality,Calculated 290 (280-300); Potassium 3.1 mEq/L (3.5-5.1); Sodium 138 mEq/L (136-145); Troponin I < 0.03 ng/mL (< 0.04); eGFR For Non-African Americans 18 (> 60)
[2018-04-03] MEDS ORDERED: 0.9 % Sodium Chloride 250 ML IVC ONE ×2 (18:59→21:28)
[2018-04-03] MEDS ORDERED: Naloxone 0.4 MG/ML INJ IVP PRN (21:28)
[2018-04-04 06:18] LABS: Basophils % 0.6 %; Eosinophils % 0.2 %; Hematocrit 27.1 % (35.3-44.9); Hemoglobin 8.6 g/dL (11.5-15.4); Immature Granulocytes % 0.6 % (0-4); Lymphocytes # 1.1 K/mcL (0.6-4.6); Lymphocytes % 20.7 %; Mean Corpuscular HGB Conc 31.7 g/dL (31.6-35.5); Mean Corpuscular Hemoglobin 30.5 pg (28.0-33.3); Mean Corpuscular Volume 96.1 fL (83.0-100.0); Mean Platelet Volume 9.2 fL (9.4-12.4); Monocytes # 0.7 K/mcL (0.0-1.3); Monocytes % 13.2 %; Neutrophils # 3.3 K/mcL (1.6-8.9); Platelet Count 181 K/mcL (140-400); Red Blood Count 2.82 M/mcL (3.82-4.97); Red Cell Distribution Width 14.4 % (11.5-14.5); Segmented Neutrophils % 64.7 %
--- NOTE | 2018-04-04 15:54 | Internal Med History&Physical ---
Date of Encounter: 04/04/18 Time of Encounter: 15:15 Assessment and Plan (1) Atrial fibrillation with rapid ventricular response Current visit: No Status: Acute Now converted back to normal sinus rhythm. Coreg dose will be increased. Lisinopril will be discontinued because of patient's complaints of chronic nonproductive cough. Amlodipine will be held to allow maximization of Coreg dose. (2) Heart failure with preserved ejection fraction Current visit: No Status: Acute Check BN peptide in a.m. (3) Anemia Current visit: No Status: Chronic Anemia testing 03/24/2018 showed iron 10, transferrin saturation 5%, transferrin 133, ferritin 784, B12 > 1500, and folate > 22.3. Discontinue supplemental B12 and folate. Iron sucrose will be ordered. Qualifiers: Anemia type: due to chronic kidney disease Chronic kidney disease stage: on chronic dialysis Qualified Code(s): N18.6 - End stage renal disease; D63.1 - Anemia in chronic kidney disease; Z99.2 - Dependence on renal dialysis (4) Hypothyroidism Current visit: No Status: Chronic TSH was normal at 2.085 on 03/24/2018. Continue present dose Synthroid Qualifiers: Hypothyroidism type: unspecified Qualified Code(s): E03.9 - Hypothyroidism, unspecified (5) Hypokalemia Current visit: Yes Status: Acute Etiology not obvious. Give supplemental potassium and monitor labs. Internal Medicine - H&P: HPI Chief complaint: AF with RVR Admitted From: Emergency Dept Plans for Post Hospital Care: Home History of present illness: Ms. Melara is a 82 year old female who came to emergency room from dialysis after she had sensation of rapid heartbeat. She was found to have atrial fibrillation with RVR. She converted to NSR while in emergency room. Hemoglob in was 7.5. She was admitted to [facility] floor to receive a blood transfusion and have further monitoring. She reports multiple episodes of AF with RVR. She does not take oral anticoagulant but is uncertain of the reason why. She had a fall with subdural hematoma November 2017 but states she was not on antiarrhythmic prior to that even though she had known paroxysmal AF. She is not on an antiarrhythmic. Her cardiovascular history is pertinent otherwise for hypertension. She reports occasional chest pain on exertion. She denies [place] DVT or pulmonary embolus. An echocardiogram 03/07/2018 showed LVEF of 60%. The interventricular septum and posterior wall thickness measurements were 1. 30 and 1.40 cm respectively. E/A ratio was 0.9. There was LAE at 5.40 cm. There was mild mitral regurgitation, [id number] mitral stenosis, aortic sclerosis, and mild to moderate tricuspid regurgitation. There was elevated estimated RVSP at 56 mmHg. A trivial paracardial effusion and a large pleural effusion were present. Past Med Surg Social Fam HX - Past Medical History Medical history: atrial fibrillation, cancer, diabetes, dialysis, hyperlipidemia, hypertension, renal disease, thyroid disease Additional medical history: History of Cancer in bones and blood, Mutiplemyleoma Psychiatric history: anxiety, depression - Past Surgical History Surgical History: other Additional surgical history: heart cath. Permacath R chest - Social History Smoking Status: Never smoker Smokeless Tobacco Status: No Alcohol use: none Drug use: none - Family History Mother Family Member Ethnicity: Non- Living Status: Father Adopted: No Family Member Ethnicity: Non- Living Status: Hx Family Cardiac Disorders: Yes (prostate) Internal Medicine - H&P: Meds Levothyroxine [Synthroid] 75 mcg PO DAILY 06/12/15 [History] Amlodipine Besylate 10 mg PO DAILY 12/30/17 [History] Folic Acid 1 mg PO DAILY #90 tablet 01/12/18 [Rx] Citalopram [CeleXA] 20 mg PO HS 01/17/18 [History] Acetaminophen [Non-Aspirin] 650 mg PO Q4H PRN 03/06/18 [History] Carvedilol 1.562 mg PO BID 03/06/18 [History] Ergocalciferol (VITAMIN D2) [Vitamin D2] 50,000 unit PO QWEEK 03/06/18 [History] LevETIRAcetam [Keppra] 750 mg PO DAILY 03/06/18 [History] Renal Vitamin [Renal Caps Softgel] 1 mg PO DAILY 03/06/18 [History] levETIRAcetam [Keppra] 250 mg PO QMWF 03/06/18 [History] Cyanocobalamin (Vitamin B-12) [Vitamin B-12] 2,000 mcg PO DAILY 03/07/18 [History] Lisinopril [Zestril] 20 mg PO DAILY 03/07/18 [History] HYDROcodone/Acet 5/325 mg [[place] 5-325 mg] 1 tab PO BID PRN 30 Days #60 tablet 03/24/18 [Rx] Allergy/AdvReac Type Severity Reaction Status Date / Time Sulfa (Sulfonamide Allergy Unknown Hives Verified 03/24/18 10:11 Antibiotics) All Systems PM: A 10-system review of systems was performed and is negative for pertinent findings except as documented above in the HPI. Review of systems: Review of systems from her January [address] [facility] hospitalization were reviewed and revised as below. Gen.: Her weight has decreased from 59.[address] [facility] hospitalization to 53.524 kilograms at present. Cardiovascular: As per history of present illness Respiratory: She is a lifelong nonsmoker. She has home oxygen. She does not recall having PFTs. GI: She denies disorders of her liver gallbladder or exocrine pancreas : She has chronic kidney disease stage V and has been on MWF hemodialysis since September 2016. She denies other kidney or bladder disorders. Neurologic: She had fall with subdural hematoma November 2017. She denies large distribution strokes or seizures. Endocrine: She has hypothyroidism. She has history of DM 2 but states she adjusted her diet and no longer takes medication. Hemoglobin A1c was satisfactory at 5.7% on 09/11/2016. Hematology/oncology: She was diagnosed with multiple myeloma approximately October 2016. A bone survey 02/18/2017 showed numerous lytic lesions throughout the axial and appendicular skeleton consistent with multiple myeloma. She has had pancytopenia presumably secondary to myeloma. She has had skin cancers but denies internal malignancies. Psychiatric: She has anxiety and depression but denies other mental health is sues [place] skeletal: She denies arthritis gout or other bone joint or muscle disorders. She has had bony spread of the multiple myeloma as per above. She has had T12 and L3 pathologic fractures. - Constitutional Vitals: Temp Pulse Resp BP Pulse Ox 99.0 F 77 16 142/59 94 04/04/18 14:51 04/04/18 14:51 04/04/18 14:51 04/04/18 14:51 04/04/18 14:51 Exam: Gen.: She is a well-developed well-nourished female resting comfortably in bed who appears in no acute distress at present time HEENT: Head is atraumatic and normocephalic. Eyes: EOMI. There is no scleral icterus. Mouth: Mucosa is moist. Neck: Supple and nontender. There is no thyromegaly or adenopathy noted. Heart: Regular without murmurs gallops or ectopics Lungs: No wheezes or crackles are heard. Abdomen: Soft and nontender. No masses or guarding are noted. Extremities: There is no cyanosis or clubbing noted. She has trace - 1+ edema o f the lower anterior marcus bilaterally. Dorsalis pedis and posterior tibial pulses are trace palpable bilaterally. Her feet are warm to touch. Neurologic: Mental status: She is talkative and a good historian. Cranial nerves: Smile is symmetric. Forehead wrinkles bilaterally. Tongue protrudes midline. EOMI. Motor: There is no pronator drift. Cerebellar: Finger to nose is intact bilaterally. Skin: Warm and dry Internal Med - H&P Results - Labs CBC & Chem 7: 04/04/18 05:44 04/03/18 16:53 Labs: Short CBC 04/03/18 04/04/18 Range/Units 16:53 05:44 WBC 4.3 5.1 (4.3-11.1) K/mcL Hgb 7.5 L 8.6 L (11.5-15.4) g/dL Hct 24.3 L 27.1 L (35.3-44.9) % Plt Count 172 181 (140-400) K/mcL Neutrophils # 2.9 3.3 (1.6-8.9) K/mcL BMP 04/03/18 16:53 Sodium 138 Potassium 3.1 L Chloride 97 L Carbon Dioxide 33 H BUN 25 H Creatinine 2.61 H Glucose 94 Calcium 8.5 L Cardiac Enzymes 04/03/18 Range/Units 16:53 Troponin I < 0.03 (< 0.04) ng/mL - Impressions ITS Impressions Chest X-Ray 04/03/18 16:31 IMPRESSION: Redemonstration of a large right and a moderate left pleural effusion with adjacent airspace disease. These effusions appear unchanged. However, there is increasing pulmonary vascular congestion, concerning for worsening pulmonary edema. D/ / Robin Lovell MD / Robin Lovell MD Interpreting Provider: Robin Lovell MD
[2018-04-04 19:36] LABS: Calcium 8.8 mg/dL (8.6-10.3); Magnesium 2.2 mg/dL (1.6-2.6); Potassium 3.9 mEq/L (3.5-5.1)
[2018-04-05] MEDS ORDERED: levETIRAcetam 250 MG TABLET PO SCH (09:00)
[2018-04-05] MEDS ORDERED: Iron Sucrose Complex 400 MG in 0.9 % Sodium Chloride 250 ML IVPB ONE (09:27)
--- NOTE | 2018-04-05 10:39 | Discharge Summary ---
Orders not resulted at time of discharge: Pending orders 04/03/18 16:31 EKG [ECG 12 lead ECG] [ECG] Stat 04/03/18 17:22 EKG [ECG 12 lead ECG] [ECG] Stat 04/03/18 20:13 Culture,Blood [BC] Stat 04/05/18 05:35 Keppra (Levetiracetam) AM 0400 Date of Encounter: 04/05/18 Time of Encounter: 10:30 - Discharge Diagnosis (1) Atrial fibrillation with rapid ventricular response Priority: Primary Status: Resolved (2) Heart failure with preserved ejection fraction Priority: Secondary Status: Chronic (3) Anemia Priority: Secondary Status: Chronic Qualifiers: Anemia type: due to chronic kidney disease Chronic kidney disease stage: on chronic dialysis Qualified Code(s): N18.6 - End stage renal disease; D63.1 - Anemia in chronic kidney disease; Z99.2 - Dependence on renal dialysis (4) Hypothyroidism Priority: Secondary Status: Chronic Qualifiers: Hypothyroidism type: unspecified Qualified Code(s): E03.9 - Hypothyroidism, unspecified (5) Hypokalemia Priority: Secondary Status: Resolved Hospital course: Ms. Melara is a 82 year old female who came to emergency room from dialysis after she had sensation of rapid heartbeat. She was found to have atrial fibrillation with RVR. She converted to NSR while in emergency room. Hemoglobin was 7.5. She was admitted to [facility] floor to receive a blood transfusion and have further monitoring. Initial orders were written by the emergency room physician. I saw her on April 04 and performed a history and physical. When I saw her she had converted back to normal sinus rhythm. Coreg dose was increased. Lisinopril was discontinued because of her complaints of chronic nonproductive cough. Amlodipine was discontinued to allow maximization of Coreg dose. She responded well to higher dose Coreg and maintained normal sinus rhythm with satisfactory heart rate and blood pressure. Anemia testing from 03/24/2018 was reviewed. She was given a dose of iron sucrose. B12 and folate supplements will be discontinued because of elevated levels on anemia testing. Supplemental potassium was given and hypokalemia normalized. Keppra level was ordered with results pending at time of discharge. She reported frequent low-grade fevers at nighttime for several weeks. Blood cultures were ordered with final report pending at time of discharge. Her PCP and/or oncologist can follow up on pending blood culture report and further evaluate as needed. On April 05 she was stable for discharge home. She will follow with her PCP Dr. Viet Ny within 1 week. - Time Spent with Patient Total time spent providing and/or coordinating discharge services: - Discharge Medications Prescriptions: Carvedilol [Coreg] 6.25 mg PO BIDWM #60 tablet Home Medications: Levothyroxine [Synthroid] 75 mcg PO DAILY 06/12/15 [History] Citalopram [CeleXA] 20 mg PO HS 01/17/18 [History] Acetaminophen [Non-Aspirin] 650 mg PO Q4H PRN 03/06/18 [History] Ergocalciferol (VITAMIN D2) [Vitamin D2] 50,000 unit PO QWEEK 03/06/18 [History] LevETIRAcetam [Keppra] 750 mg PO DAILY 03/06/18 [History] Renal Vitamin [Renal Caps Softgel] 1 mg PO DAILY 03/06/18 [History] levETIRAcetam [Keppra] 250 mg PO QMWF 03/06/18 [History] HYDROcodone/Acet 5/325 mg [[place] 5-325 mg] 1 tab PO BID PRN 30 Days #60 tablet 03/24/18 [Rx] Carvedilol [Coreg] 6.25 mg PO BIDWM #60 tablet 04/05/18 [Rx] Allergies/Adverse Reactions: Allergy/AdvReac Type Severity Reaction Status Date / Time Sulfa (Sulfonamide Allergy Unknown Hives Verified 03/24/18 10:11 Antibiotics) Date of admission: 04/03/18 20:22 Primary care physician: Viet Ny DO - Constitutional Vitals: Temp Pulse Resp BP Pulse Ox 98.1 F 74 17 158/66 95 04/05/18 07:20 04/05/18 07:20 04/05/18 07:20 04/05/18 07:20 04/05/18 07:20 - Patient Status Disposition: Home, Self-Care Condition: Fair - Discharge Instructions Follow Up With: Viet Ny DO [Primary Care Provider] - 1 week - Diet and Activity Activity: resume usual activities as tolerated Diet: advance to your usual diet - VTE Documentation of Mechanical Device: Graduated compression elastic hosiery
[2018-04-05 10:52] VITALS: BP 154/62
[2018-04-06] MEDS ORDERED: levETIRAcetam 250 MG TABLET PO SCH (09:00)
--- NOTE | 2018-04-06 17:44 | Electrocardiograph Report ---
[address] [place], [place] [address] Test Date: 2018-04-03 Pat Name: Karine Melara Department: 9201 Room: [facility] Gender: F Rn Forensic: Paul : 1935 Requested By: Elfego Hannah Order Number: [id number] Reading MD: Marly Devlin Measurements Intervals [place] Rate: 115 P: IN: 0 QRS: -7 QRSD: 160 T: 120 QT: 365 QTc: 433 Interpretive Statements ATRIAL FIBRILLATION WITH RAPID VENTRICULAR RESPONSE INTRAVENTRICULAR CONDUCTION DELAY POSSIBLY RATE RELATED Electronically Signed On 04-06-2018 17:43:36 EST by Marly Devlin
--- NOTE | 2018-04-06 17:46 | Electrocardiograph Report ---
[address] [place], [place] [address] Test Date: 2018-04-03 Pat Name: Karine Melara Department: 9201 Room: [facility] Gender: F [employer] Associate: Paul : 1935 Requested By: Elfego Hannah Order Number: [id number] Reading MD: Marly Devlin Measurements Intervals [place] Rate: 89 P: 11 WV: 168 QRS: -6 QRSD: 88 T: 18 QT: 374 QTc: 421 Interpretive Statements SINUS RHYTHM Electronically Signed On 04-06-2018 17:45:05 EST by Marly Devlin
== END 2018-04-05 12:40 | disposition home or self-care (01) ==
LOC: EMEROOPIK 15:32 → INPPIK 15:32
PROVIDERS: ADMIT Internal Medicine; ATTEND Internal Medicine